=== PATIENT | female | born 2000 | race Two or more races ===

== ENCOUNTER 2022-12-05 10:03 | Emergency (ER) | payer OTHER ==
[~2022-12-05] VITALS: Ht 170.2 cm; Wt 98.8 kg
[2022-12-05 10:03] VITALS: BP 129/62; PULSE 75; RESP 18; TEMP 98.1; O2SAT 97
[2022-12-05] MEDS ORDERED: CLIN300C70 PO (11:17)
[2022-12-05] MEDS ORDERED: LIDO2SOL26 MT (11:17)
== END 2022-12-05 11:31 | disposition home or self-care (01) ==
LOC: ER 10:03
DX: K13.79 Other lesions of oral mucosa (principal); Z79.2 Long term (current) use of antibiotics; Z79.899 Other long term (current) drug therapy

== ENCOUNTER 2022-12-13 09:17 | Emergency (ER) | payer OTHER ==
[~2022-12-13] VITALS: Ht 170.2 cm; Wt 98.5 kg
[~2022-12-13 09:17] MED LIST: CLIN300C70 PO; LIDO2SOL26 MT
[2022-12-13 09:53] VITALS: BP 109/53; PULSE 60; RESP 18; TEMP 97.9; O2SAT 100
[2022-12-13 10:08] LABS: Basophils # (auto) 0.1 10 ^3/uL (0-0.2); Basophils % (auto) 0.7 % (0.0-2.0); Eosinophils # (auto) 0.1 10 ^3/uL (0-0.8); Eosinophils % (auto) 0.7 % (0.0-7.0); Hematocrit 38.8 % (36.0-46.0); Hemoglobin 12.6 g/dL (12.2-16.2); Lymphocytes # (auto) 2.5 10 ^3/uL (0.4-5.4); Lymphocytes % (auto) 21.5 % (10.0-50.0); Mean Corpuscular Hemoglobin 26.4 pg (28.0-32.0); Mean Corpuscular Hgb Conc. 32.5 g/dL (32.0-36.0); Mean Corpuscular Volume 81.2 fL (80.0-100.0); Monocytes # (auto) 0.4 10 ^3/uL (0-1.3); Monocytes % (auto) 3.4 % (0.0-12.0); Neutrophils # (auto) 8.5 10 ^3/uL (1.6-8.6); Neutrophils % (auto) 73.7 % (37.0-80.0); Nucleated Red Blood Cells % 0.1 %; Red Blood Cells 4.78 10^6/uL (4.0-5.20); Red Cell Distribution Width 15.6 % (11.8-14.3); White Blood Cell 11.6 10^3/uL (4.4-10.8)
[2022-12-13 10:22] LABS: Alanine Aminotransferase 14 U/L (7-40); Albumin 4.3 g/dL (3.2-4.8); Alkaline Phosphatase 85 U/L (46-116); Anion Gap 7 (5-15); Aspartate Aminotransferase 21 U/L (13-40); BUN/Creatinine Ratio 11.1 (10.0-20.0); Blood Alcohol < 3.0 mg/dL (<10); Blood Urea Nitrogen 8 mg/dL (9-23); Calcium 9.4 mg/dL (8.5-10.1); Carbon Dioxide 25 mmol/L (20-30); Chloride 107 mmol/L (98-107); Glucose 95 mg/dL (74-106); Sodium 139 mmol/L (136-145)
[2022-12-13 10:23] LABS: Bilirubin, Total 0.3 mg/dL (0.2-1.0); Total Protein 7.3 g/dL (5.7-8.2)
[2022-12-13] MEDS ORDERED: METOCLOPRAMIDE HCL 5MG/ml INJ 2ml VIAL IV ONE (10:30)
[2022-12-13] MEDS ORDERED: SODIUM CHLORIDE 0.9% 1,000 ML IV ONE (10:30)
[2022-12-13] MEDS ORDERED: FAMOTIDINE (10MG/ML) 2ML VL IV ONE (10:30)
[2022-12-13 11:01] LABS: Amphetamine Screen, Urine Neg (NEGATIVE); Barbiturate Scree,Urine Neg (NEGATIVE); Benzodiazephine Screen, Urine Neg (NEGATIVE)
[2022-12-13 11:03] LABS: Cannabinoid Screen, Urine Pos (NEGATIVE); Cocaine Screen, Urine Neg (NEGATIVE); Opiate Scree,Urine Neg (NEGATIVE); Phencyclidine Screen, Urine Neg (NEGATIVE)
[2022-12-13 11:33] LABS: Urine Bacteria NONE SEEN /hpf (None Seen); Urine Blood 2+ /uL (Negative); Urine Clarity Clear (Clear); Urine Color Colorless (Yellow); Urine Protein, UAD Negative (Negative); Urine Specific Gravity 1.015 (1.001-1.035); Urine Urobilinogen Normal (Negative); Urine WBC <1 /hpf (0 - 5)
[2022-12-13] MEDS ORDERED: METO-281 PO (11:53)
[2022-12-13] MEDS ORDERED: ONDANSETRON HCL 4 MG/2 ML VIAL IV ONE (12:00)
== END 2022-12-13 12:11 | disposition home or self-care (01) ==
LOC: ER 09:17
DX: R11.2 Nausea with vomiting, unspecified (principal); R19.7 Diarrhea, unspecified; F12.10 Cannabis abuse, uncomplicated; F15.90 Other stimulant use, unspecified, uncomplicated; Z79.899 Other long term (current) drug therapy
CPT/HCPCS: 36415; 80053; 80307; 80320; 81001; 83690; 85025; 96361; 96374; 96375; 99284; J2765; J3490; J7030

== ENCOUNTER 2023-02-10 08:08 | Emergency (ER) | payer OTHER ==
[~2023-02-10] VITALS: Ht 170.2 cm; Wt 98.7 kg
[~2023-02-10 08:08] MED LIST changes: +METO-281 PO
[2023-02-10] MEDS ORDERED: SODIUM CHLORIDE 0.9% 1,000 ML IV ONE ×3 (08:30→09:00)
[2023-02-10 08:46] LABS: Basophils # (auto) 0.1 10 ^3/uL (0-0.2); Eosinophils # (auto) 0.1 10 ^3/uL (0-0.8); Mean Corpuscular Hgb Conc. 32.8 g/dL (32.0-36.0)
[2023-02-10 08:47] LABS: Basophils % (auto) 0.9 % (0.0-2.0); Eosinophils % (auto) 1.1 % (0.0-7.0); Hematocrit 39.8 % (36.0-46.0); Hemoglobin 13.1 g/dL (12.2-16.2); Lymphocytes # (auto) 1.8 10 ^3/uL (0.4-5.4); Lymphocytes % (auto) 23.6 % (10.0-50.0); Mean Corpuscular Hemoglobin 26.8 pg (28.0-32.0); Mean Corpuscular Volume 81.6 fL (80.0-100.0); Monocytes # (auto) 0.3 10 ^3/uL (0-1.3); Monocytes % (auto) 4.5 % (0.0-12.0); Neutrophils # (auto) 5.3 10 ^3/uL (1.6-8.6); Neutrophils % (auto) 69.9 % (37.0-80.0); Nucleated Red Blood Cells % 0.1 %; Red Blood Cells 4.88 10^6/uL (4.0-5.20); Red Cell Distribution Width 15.3 % (11.8-14.3); White Blood Cell 7.6 10^3/uL (4.4-10.8)
[2023-02-10] MEDS ORDERED: THIAMINE 100mg/ml INJ (200mg/2ml VIAL) IV ONE (09:00)
[2023-02-10 09:20] LABS: Alanine Aminotransferase 16 U/L (7-40); Albumin 4.5 g/dL (3.2-4.8); Alkaline Phosphatase 90 U/L (46-116); Anion Gap 6 (5-15); Aspartate Aminotransferase 17 U/L (13-40); BUN/Creatinine Ratio 6.2 (10.0-20.0); Bilirubin, Total 0.4 mg/dL (0.2-1.0); Blood Urea Nitrogen 5 mg/dL (9-23); Calcium 9.6 mg/dL (8.5-10.1); Carbon Dioxide 27 mmol/L (20-30); Chloride 109 mmol/L (98-107); Glucose 95 mg/dL (74-106); Potassium 4.1 mmol/L (3.5-5.1); Sodium 142 mmol/L (136-145)
[2023-02-10 09:21] LABS: Total Protein 7.3 g/dL (5.7-8.2)
[2023-02-10] MEDS ORDERED: ONDANSETRON HCL 4 MG/2 ML VIAL IV ONE (09:45)
[2023-02-10] MEDS ORDERED: PROCHLORPERAZINE EDISYLATE 5 MG/ML 2ML VIAL IV ONE (09:45)
[2023-02-10 12:16] VITALS: PULSE 90; RESP 18; O2SAT 98
[2023-02-10 12:17] VITALS: BP 92/50; PULSE 71; RESP 18; TEMP 97.1; O2SAT 98
== END 2023-02-10 12:33 | disposition home or self-care (01) ==
LOC: ER 08:08
DX: F10.10 Alcohol abuse, uncomplicated (principal); F15.90 Other stimulant use, unspecified, uncomplicated; Z79.899 Other long term (current) drug therapy; Y90.0 Blood alcohol level of less than 20 mg/100 ml
CPT/HCPCS: 36415; 80053; 80320; 85025; 96361; 96374; 96375; 99284; J0780; J2405; J3411; J7030; J7060

== ENCOUNTER → 2023-06-18 16:59 | Emergency (ER) | payer OTHER ==
[~2023-06-18 16:59] MED LIST changes: +CLIN1CAP70 PO; -CLIN300C70 PO
== END | disposition left against medical advice (07) ==
LOC: ER 16:59
DX: Z00.00 Encounter for general adult medical examination without abnormal findings (principal); Z53.21 Procedure and treatment not carried out due to patient leaving prior to being seen by health care provider

== ENCOUNTER 2023-06-19 11:53 | Emergency (ER) | payer OTHER ==
[~2023-06-19] VITALS: Ht 170.2 cm; Wt 56.4 kg
[2023-06-19 13:12] VITALS: BP 124/61; PULSE 61; RESP 18; TEMP 98.6; O2SAT 96
[2023-06-19] MEDS: KETOROLAC TROMETH 60MG/2ML VIAL IM ONE (14:03)
== END 2023-06-19 15:10 | disposition home or self-care (01) ==
LOC: ER 11:53
DX: Z30.432 Encounter for removal of intrauterine contraceptive device (principal); F12.10 Cannabis abuse, uncomplicated
CPT/HCPCS: 96372; 99284; J1885

== ENCOUNTER 2023-09-13 05:47 | Emergency (ER) | payer OTHER ==
[~2023-09-13] VITALS: Ht 170.2 cm; Wt 101.3 kg
[2023-09-13 08:11] VITALS: PULSE 74; RESP 15; O2SAT 99
[2023-09-13] MEDS: ONDANSETRON HCL 4 MG/2 ML VIAL IV ONE (08:24)
[2023-09-13] MEDS: SODIUM CHLORIDE 0.9% 1,000 ML IVB ONE (08:25)
[2023-09-13] MEDS: FOLIC ACID 1 MG, MAGNESIUM SULF SDV 50% 8 MEQ, MULTIPLE VITAMIN 10 ML, THIAMINE INJ 100... INJ SCH (08:55)
[2023-09-13 10:08] VITALS: TEMP 98.2
[2023-09-13 12:08] VITALS: BP 98/50; PULSE 76; RESP 15; O2SAT 100
[2023-09-13 12:21] LABS: Basophils # (auto) 0.1 10 ^3/uL (0-0.2); Basophils % (auto) 0.4 % (0.0-2.0); Eosinophils # (auto) 0.1 10 ^3/uL (0-0.8); Eosinophils % (auto) 0.8 % (0.0-7.0); Hematocrit 37.4 % (36.0-46.0); Hemoglobin 12.2 g/dL (12.2-16.2); Lymphocytes # (auto) 2.6 10 ^3/uL (0.4-5.4); Lymphocytes % (auto) 19.3 % (10.0-50.0); Mean Corpuscular Hemoglobin 27.4 pg (28.0-32.0); Mean Corpuscular Hgb Conc. 32.7 g/dL (32.0-36.0); Mean Corpuscular Volume 83.8 fL (80.0-100.0); Monocytes # (auto) 0.7 10 ^3/uL (0-1.3); Monocytes % (auto) 5.1 % (0.0-12.0); Neutrophils # (auto) 9.9 10 ^3/uL (1.6-8.6); Neutrophils % (auto) 74.4 % (37.0-80.0); Red Blood Cells 4.46 10^6/uL (4.0-5.20); Red Cell Distribution Width 14.8 % (11.8-14.3); White Blood Cell 13.3 10^3/uL (4.4-10.8)
[2023-09-13 12:32] LABS: Chloride 109 mmol/L (98-107); Potassium 3.6 mmol/L (3.5-5.1); Sodium 141 mmol/L (136-145)
[2023-09-13 12:33] LABS: Anion Gap 6 (5-15); Calcium 9.2 mg/dL (8.7-10.4); Carbon Dioxide 26 mmol/L (20-30)
[2023-09-13 12:38] LABS: Blood Urea Nitrogen 7 mg/dL (9-23); Glucose 116 mg/dL (74-106)
[2023-09-13] MEDS ORDERED: MAGN400T40 PO (13:55)
[2023-09-13] MEDS ORDERED: FOLIC ACID 1 MG, MAGNESIUM SULF SDV 50% 8 MEQ, MULTIPLE VITAMIN 10 ML, THIAMINE INJ 100... INJ SCH (18:00)
== END 2023-09-13 14:07 | disposition home or self-care (01) ==
LOC: ER 05:47
DX: F10.10 Alcohol abuse, uncomplicated (principal); R10.2 Pelvic and perineal pain; E83.42 Hypomagnesemia; J45.909 Unspecified asthma, uncomplicated; F15.90 Other stimulant use, unspecified, uncomplicated; Z98.890 Other specified postprocedural states; Z79.899 Other long term (current) drug therapy; Y90.0 Blood alcohol level of less than 20 mg/100 ml
CPT/HCPCS: 36415; 80048; 83735; 84702; 85025; 86592; 96365; 96366; 96375; 99284; J2405; J3411; J3475; J7030